=== PATIENT | female | born 1975 | race Caucasian/White ===

== ENCOUNTER → 2020-02-19 | Outpatient (CLI) | payer OTHER ==
[~2020-02-19] MED LIST: AIRBORNE TABLE1 EAC1 PO; AMOXICILLIN875 MG PO; TESSALON PERLE100 MG PO; VENTOLIN HFA 1818 GM INH
== END ==
LOC: M.RAD 11:04
PROVIDERS: ATTEND Nurse Practitioner Family
DX: M79.671 Pain in right foot (principal)

== ENCOUNTER → 2020-02-27 | Outpatient (CLI) | payer OTHER | LOC: M.MRI 07:18 | PROVIDERS: ATTEND Nurse Practitioner Family | DX: M76.61 Achilles tendinitis, right leg (principal); M77.31 Calcaneal spur, right foot; R60.0 Localized edema; M65.871 Other synovitis and tenosynovitis, right ankle and foot ==

== ENCOUNTER 2021-09-01 18:19 | Emergency (ER) | payer OTHER ==
[~2021-09-01] VITALS: Ht 160 cm; Wt 90.7 kg
[2021-09-01] MEDS ORDERED: AMITRIPTYLINE H10 M1 PO (19:07)
[2021-09-01 19:57] LABS: URINE BILIRUBIN NEGATIVE (Negative); URINE BLOOD 3+ (Negative); URINE CLARITY CLEAR; URINE COLOR YELLOW; URINE GLUCOSE-RANDOM NEGATIVE (Negative); URINE KETONES NEGATIVE (Negative); URINE LEUKOCYTES-REFLEX TRACE (Negative); URINE NITRITE-REFLEX NEGATIVE (Negative); URINE PROTEIN NEGATIVE (Negative); URINE SPECIFIC GRAVITY <= 1.005 (1.005-1.030); URINE UROBILINOGEN 0.2 E.U./dl (0.2-1.0)
[2021-09-01 20:15] LABS: ABSOLUTE BASOPHILS 0.1 thou/uL (0.0-0.2); ABSOLUTE LYMPHOCYTES 2.3 thou/uL (0.8-5.3); ABSOLUTE MONOCYTES 0.4 thou/uL (0.0-1.2); ABSOLUTE NEUTROPHILS 8.2 thou/uL (1.6-8.1); EOSINOPHILS 0.3 %; HEMATOCRIT 42.3 % (37.0-47.0); HEMOGLOBIN 14.1 gm/dL (12.0-15.0); LYMPHOCYTES 20.9 %; MCH 27.4 pg (26.0-34.0); MCHC 33.3 g/dL (28.0-37.0); MCV 82.2 fL (80.0-100.0); NUCLEATED RBCS 0 /100WBC; PLATELET COUNT* 442 thou/uL (150-400); POLYS 73.8 %; RBC 5.15 mil/uL (4.20-5.00); RDW-CV 15.9 % (10.5-14.5); WBC 11.2 thou/uL (4.0-11.0)
[2021-09-01 20:18] LABS: SQUAMOUS 4-10 Moderate /LPF (0-3)
[2021-09-01 20:19] LABS: BACTERIA-REFLEX 1-9 Few /HPF (None Seen); CASTS None Seen /LPF (None Seen); CRYSTALS None Seen /LPF (None Seen); URINE RBC 3-10 Few /HPF (0-2); URINE WBC-REFLEX 0-5 Rare /HPF (0-5)
[2021-09-01 20:25] LABS: CALCIUM 8.8 mg/dL (8.5-10.1); CREATININE 0.7 mg/dL (0.6-1.3); POTASSIUM 3.4 mmol/L (3.5-5.1)
[2021-09-01 20:31] LABS: ALBUMIN 3.7 g/dL (3.4-5.0); MAGNESIUM 2.1 mg/dL (1.8-2.4); TOTAL BILIRUBIN 0.4 mg/dL (<0.1-1.0); TOTAL PROTEIN 7.8 g/dL (6.4-8.2)
[2021-09-01 22:42] VITALS: BP 112/70
--- NOTE | 2021-09-02 11:19 | EKG ---
[place] [address] ELECTROCARDIOGRAM REPORT Name: PAVEL TYSON Room: [facility]#: [id number] Admission: 09/01/21 Attend Phys: Discharge: 09/01/21 Date of : 75 Date of Service: 09/01/211925 Report #: [id number] THIS REPORT FOR: //name// [facility] ED Test Date: 2021-09-01 Test Time: 19:26:11 Pat Name: PAVEL TYSON Department: Room: Gender: [employer]cer: : 1975 Requested By: Sweetie Aguiar Order Number: [id number] MD: Brandon Day Measurements Intervals [place] Rate: 117 P: 44 FL: 154 QRS: 60 QRSD: 98 T: 9 QT: 327 QTc: 457 Interpretive Statements Sinus tachycardia No previous ECG available for comparison Electronically Signed On 09-02-2021 11:18:46 [employer] by Brandon Day [email or web address] <ELECTRONICALLY SIGNED> By: Brandon Day MD, [facility] 09/02/21 1118 25 25 Brandon Day MD, FACC /EPI
== END 2021-09-01 22:44 | disposition home or self-care (01) ==
LOC: M.ERS 18:19
PROVIDERS: Emergency Medicine
DX: R00.0 Tachycardia, unspecified (principal); Z20.822 Contact with and (suspected) exposure to COVID-19; Z79.899 Other long term (current) drug therapy; Z88.5 Allergy status to narcotic agent; Z88.6 Allergy status to analgesic agent; Z87.891 Personal history of nicotine dependence